=== PATIENT | female | born 1960 | race Two or more races ===

== ENCOUNTER → 2022-12-09 | Emergency (ER) | payer MEDICAID | END | disposition left against medical advice (07) | LOC: ER 22:07 | DX: R04.0 Epistaxis (principal); Z53.21 Procedure and treatment not carried out due to patient leaving prior to being seen by health care provider ==

== ENCOUNTER 2025-02-12 22:30 | Emergency (ER) | payer MEDICAID ==
[~2025-02-12] VITALS: Ht 165.1 cm; Wt 143.6 kg
[2025-02-12 22:41] VITALS: BP 164/82; PULSE 67; RESP 20; TEMP 98.2; O2SAT 96
== END 2025-02-12 23:06 | disposition left against medical advice (07) ==
LOC: EDBD 22:30 → ER 22:34
DX: M79.10 Myalgia, unspecified site (principal); Z53.21 Procedure and treatment not carried out due to patient leaving prior to being seen by health care provider
CPT/HCPCS: 82947